=== PATIENT | female | born 1970 | race Caucasian/White ===

== ENCOUNTER 2016-10-22 06:10 | Inpatient (IN) | payer BC ==
[2016-10-19 10:12] LABS: HEMOGLOBIN 15.2 g/dL (12.0-16.0)
--- NOTE | ~2016-10-22 | OP ---
Record Of Operation [facility] [address] [place]. [address] NAME: TACO FLOYD : 68 STATUS : ADM Ann PAT#: [id number] AGE: 46 ADM/REG DATE : 10/22/16 MR#: [id number] REPORT SERV DATE: 10/24/16 DICTATED BY: DYLAN GABRIEL II DATE: 10/24/16 REPORT STATUS : Draft TRANSCRIBED BY: MODLenin DATE: 10/24/16 DATE OF PROCEDURE: 10/22/2016 PREOPERATIVE DIAGNOSES: 1. Left greater than right upper extremity radiculopathy. 2. 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 3. 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 4. Persistent stenosis, C5-6, C6-7. 5. Adjacent segment stenosis C7-T1. POSTOPERATIVE DIAGNOSES: 1. Left greater than right upper extremity radiculopathy. 2. 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 3. 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 4. Persistent stenosis, C5-6, C6-7. 5. Adjacent segment stenosis C7-T1. PROCEDURE: 1. Posterior cervical laminectomy, C5-6, C6-7, and C7-T1. 2. Posterolateral fusion C4-5, C7-T1. 3. Posterior instrumentation C4-5, C7-T1. 4. Use of local autograft, allograft substitute, and bone morphogenic protein. 5. Use of the stereotactic spinal imaging system. SURGEON: Dylan Gabriel M.D. FLUIDS: 700 mL LR. ESTIMATED BLOOD LOSS: 100 mL. DRAIN: One. IMPLANT: Alphatec. COMPLICATIONS: None. PREOPERATIVE HISTORY: This is a very friendly, 46-year-old female, who reports a history of fusion. She reports her neck does bother her, but her left upper extremity is what is bothering her essentially since the time of the other surgery. She said she essentially has just chosen to live with it but it has slowly become more of a nuisance and it bothers her especially at night. She ultimately sought additional insight and treatment on why the arm was still bothering her. It appeared based upon her CT myelogram that she had some persistent foraminal stenosis especially at C5-6. She had some degree of changes at C6-7 and C7-T1. We discussed the pros and cons of surgery as well as the potential persistent arm symptoms and she had dealt with it for several years. We discussed the potential for needing neuropathic pain medicines long-term and/or a spinal column stimulator trial with Record Of Operation [facility] [address] [place]. [address] NAME: TACO FLOYD : 68 STATUS : ADM Ann PAT#: [id number] AGE: 46 ADM/REG DATE : 10/22/16 MR#: [id number] REPORT SERV DATE: 10/24/16 DICTATED BY: DYLAN GABRIEL II DATE: 10/24/16 REPORT STATUS : Draft TRANSCRIBED BY: MODLenin DATE: 10/24/16 pain management as a last resort. DESCRIPTION OF PROCEDURE: After informed consent was obtained, the patient was brought to the operating room at her request and general anesthesia achieved. She was placed in the supine position and the Torres-Wells tongs applied. The patient was then turned in the prone position, and the back was prepped and draped in a sterile fashion. Specifically, the cervical and upper thoracic region were prepped and draped. The incision was now made and subperiosteal exposure was completed from C4-T1. I have chosen to include C4-5 based upon some of the angular kyphosis at this level as well as the suspicion that she had a nonunion at C5-6 and C6-7. Part of my rationale that I had personal experience with the particular devices that were used in this particular case, and I have experienced a fairly high degree of nonunion as these devices in my opinion sometimes lack of biomechanical superiority. At this point, dissection was performed and somewhat surprisingly we did identify a solid arthrodesis of the facets at C5-6 and C6-7. However, the facet was significantly arthritic at C4-5 and there was a high degree of hypermobility at this level. At this point, the laminectomy was performed at C5-6, C6-7, and C7-T1. The spinal cord did appear to have a fair bit of central stenosis at these levels and following the laminectomy, the spinal cord appeared much more decompressed following the aggressive laminectomy. At this point, I then used a nerve hook to probe the foraminal zones. There was only mild-to- moderate foraminal stenosis at C6-7. The C7-T1 foramina did appear minimally compressed. However, this area again appeared to be hypermobile at the junction between the fused C5-7 segment and the T1 level. However, interestingly and as expected, there was severe compression of the C6 nerve root from the hypertrophic facet. There was also some underlying compression from the anterior foraminal zone. At this point, the large foraminotomy was further carried out and adequate decompression of the C6 nerve root achieved. The area was now irrigated. Next, the lateral mass screws were placed into C4 and C5. We also placed screws in the C6 as there was more surface area in anterior to posterior dimension for placement of the lateral mass screw versus C7. We then placed bilateral pedicle screws into T1. The stereotactic guidance system was very beneficial. Please note, also the decompression was achieved and the surgery was carried out using loupe magnification and a head lamp. At this point, I was pleased with the decompression and now the instrumentation. Rods were now applied bilaterally after we had performed a repeat CT scan, which confirmed acceptable placement of the implants. Final tightening was performed. The area was now irrigated followed by decortication of the lateral masses of C4, C5, C7, and T1 transverse processes. Local autograft, allograft substitute, and bone morphogenic protein were placed along these decorticated surfaces. A deep drain was placed and the standard closure was performed, and the patient extubated and transferred to PACU in stable condition. JJ/MODL Record Of Operation [address] [address] NAME: TACO FLOYD : 68 STATUS : ADM Ann PAT#: [id number] AGE: 46 ADM/REG DATE : 10/22/16 MR#: [id number] REPORT SERV DATE: 10/24/16 DICTATED BY: DYLAN GABRIEL II DATE: 10/24/16 REPORT STATUS : Draft TRANSCRIBED BY: MODL DATE: 10/24/16 Dylan Gabriel II, M.D. / [id number] CC: Dylan Gabriel II, M.D. Leslie Johnson M.D.
[~2016-10-22 06:10] MED LIST: MULTIPLE VIT PO; PERCOCET 7.5/321 TAB PO; T PO
[2016-10-25] MEDS ORDERED: ROXICODONE15 MG PO (07:21)
[2016-10-25] MEDS ORDERED: MSCONTIN PO (07:21)
[2016-10-25] MEDS ORDERED: V5 PO (07:21)
== END 2016-10-25 11:28 | disposition home or self-care (01) | DRG 473 ==
LOC: SDC 06:10 → SDC/OF 14:39 → 3SO 14:41
PROVIDERS: Orthopaedic Surgery
PROC: 0RG1071 Fusion of Cervical Vertebral Joint with Autologous Tissue Substitute, Posterior Approach, Posterior Column, Open Approach (ICD-10-PCS; 2016-10-22)
PROC: 01N10ZZ Release Cervical Nerve, Open Approach (ICD-10-PCS; principal; 2016-10-22 07:30)
PROC: 079T3ZX Drainage of Bone Marrow, Percutaneous Approach, Diagnostic (ICD-10-PCS; 2016-10-22 07:30)
PROC: 0RG4071 Fusion of Cervicothoracic Vertebral Joint with Autologous Tissue Substitute, Posterior Approach, Posterior Column, Open Approach (ICD-10-PCS; 2016-10-22 07:30)
DX: M96.0 Pseudarthrosis after fusion or arthrodesis (principal); F17.200 Nicotine dependence, unspecified, uncomplicated; M50.121 Cervical disc disorder at C4-C5 level with radiculopathy; M50.13 Cervical disc disorder with radiculopathy, cervicothoracic region; Z88.0 Allergy status to penicillin; Z79.891 Long term (current) use of opiate analgesic; Z82.61 Family history of arthritis; Z79.899 Other long term (current) drug therapy; Z80.9 Family history of malignant neoplasm, unspecified; Z83.3 Family history of diabetes mellitus; Z82.3 Family history of stroke
CPT/HCPCS: 82962; 84703; 85014; 85018; 87641; 88304; 88311; 96374; 96376; 97116-GP; 97161-GP; A9270-GY; C1713; C1768; G0378; J1170; J1580; J2250; J2405; J2710; J3010; J3370